=== PATIENT | female | born 1985 | race Caucasian/White ===

== ENCOUNTER 2018-08-01 17:24 | Emergency (ER) | payer OTHER ==
[2018-08-01] MEDS ORDERED: Cephalexin 500 MG Cap ONE (17:30)
[2018-08-01] MEDS ORDERED: Acetaminophen/HYDROcodone 325-5 MG Tab ONE (17:30)
[2018-08-01] MEDS: Lidocaine 2% 5 ML SDV INJECT ONE (17:40)
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
[2018-08-01] MEDS: cefTRIAXone 1 GM Vial IM ONE (19:10)
[2018-08-01] MEDS: Diphtheria/Tetanus Toxoids,Adult (Td) 0.5 ML SDV IM ONE (19:10)
== END 2018-08-01 19:26 | disposition home or self-care (01) ==
LOC: LB.ED 17:24
DX: S61.412A Laceration without foreign body of left hand, initial encounter (principal); Z23 Encounter for immunization; W31.2XXA Contact with powered woodworking and forming machines, initial encounter
CPT/HCPCS: 12042; 90471; 90714; 96372; 99283-25; A9270-GY; J0696; J2001